=== PATIENT | female | born 2000 | race Caucasian/White ===

== ENCOUNTER 2025-02-05 21:05 | Inpatient (IN) | payer MEDICAID, OTHER ==
[~2025-02-05] VITALS: Ht 154.9 cm; Wt 102.0 kg
[2025-02-05 21:56] LABS: Basophils # (auto) 0 10 ^3/uL (0-0.2); Basophils % (auto) 0.1 % (0.0-2.0); Eosinophils # (auto) 0.1 10 ^3/uL (0-0.8); Eosinophils % (auto) 0.7 % (0.0-7.0); Hematocrit 41.7 % (36.0-46.0); Lymphocytes # (auto) 0.7 10 ^3/uL (0.4-5.4); Lymphocytes % (auto) 3.7 % (10.0-50.0); Mean Corpuscular Hgb Conc. 33.7 g/dL (32.0-36.0); Mean Corpuscular Volume 83.2 fL (80.0-100.0); Monocytes # (auto) 0.5 10 ^3/uL (0-1.3); Monocytes % (auto) 2.6 % (0.0-12.0); Neutrophils # (auto) 17.6 10 ^3/uL (1.6-8.6); Neutrophils % (auto) 92.9 % (37.0-80.0); Platelet Count (auto) 299 10^3/uL (140-450); Red Blood Cells 5.01 10^6/uL (4.0-5.20); Red Cell Distribution Width 13.9 % (11.8-14.3)
--- NOTE | 2025-02-05 22:07 | ED.PDOC ---
History of Present Illness HPI Comments 24 y/o obese F, with a history of marijuana use, presents with c/o abdominal pain, nausea, vomiting, and diarrhea. Patient reports onset of symptoms following the consumption of pork-containing food, earlier, today. Vomitus contains food content and 'yellow bile.' She endorses on history of similar symptoms whenever eating greasy or spicy food items. Patient admits to smoking marijuana, yesterday, and is unsure on being , currently. No recent prior ailments, sick contact, known spoiled food consumption, or injuries reported. She denies having any bloody vomitus or diarrhea, urinary symptoms, fever, chills, or further associated symptoms. Chief Complaint: Abdominal Pain Time Seen by MD: 21:30 Reviewed Notes: Nurses Notes, Medications, Allergies Allergies: Coded Allergies: NO KNOWN ALLERGIES (Unverified , 02/05/25) Home Meds Active Scripts Sulfamethoxazole W/Trimethopri (Bactrim Ds Tablet) 1 Tab Tb, 1 TAB PO BID for 7 Days, #14 TAB Prov:GABRIELA CHRISTIANSON MD 02/05/25 Loperamide Hcl (Imodium) 2 Mg Cp, 2 MG PO Q6HP PRN, #30 CAP Prov:GABRIELA CHRISTIANSON MD 02/05/25 Ondansetron HCl (Ondansetron Hydrochloride) 8 Mg Tab, 8 MG PO Q6HP PRN, #30 TAB Prov:GABRIELA CHRISTIANSON MD 02/05/25 Information Source: Patient Mode of Arrival: Ambulatory Severity: Moderate Timing: Hours Duration: Since onset Prehospital treatment: None Past Medical History PAST MEDICAL HISTORY: Denies Surgical History: Denies all surgeries LAPEL BASTER History: No Pertinent LAPEL BASTER History Social History Smoker: Non-Smoker Alcohol: Occasionally Drugs: Marijuana Lives In: Home All Other Systems: Reviewed and Negative (as per HPI) Physical Exam General Appearance: Mild Distress, Obese HEENT: Normal ENT Inspection, Pharynx Normal, TMs Normal Neck: Full Range of Motion, Non-Tender, Normal, Normal Inspection Respiratory: Chest Non-Tender, Lungs Clear, No Accessory Muscle Use, No Respiratory Distress, Normal Breath Sounds Cardiovascular: No Edema, No JVD, No Murmur, No Gallop, Normal Peripheral Pulses, Regular Rate/Rhythm Breast Exam: Deferred Gastrointestinal: No Organomegaly, Non Tender, No Pulsatile Mass, Normal Bowel Sounds, Soft Genitalia: Deferred Pelvic: Deferred Rectal: Deferred Extremities: No calf tenderness, Normal capillary refill, Normal inspection, Normal range of motion, Non-tender, No pedal edema Musculoskeletal : Apperance: Normal Neurologic: Alert, wax room supervisor II-XII nml as Tested, No Motor Deficits, Normal Affect, Normal Mood, No Sensory Deficits Cerebellar Function: Normal Reflexes: Normal Skin: Dry, Normal Color, Warm Lymphatic: No Adenopathy Was a procedure done? Was a procedure done?: No Differential Dx Considerations may include: gastritis, gastroenteritis, GERD, PUD, cholelithiasis, cholecystitis, spoiled food, viral syndrome, , UTI, cannabinoid hyperemesis syndrome, among others X-Ray, Labs, Meds, VS Vital Signs Date Time Temp Pulse Resp B/P (MAP) Pulse Ox O2 Delivery O2 Flow Rate FiO2 02/06/25 01:11 100.2 02/06/25 00:11 102.5 02/05/25 23:41 25 95 Room Air* 0 21 02/05/25 23:29 102.5 129 20 108/77 (87) 96 102.5 02/05/25 21:20 101.4 128 16 116/77 (90) 96 101.4 Lab Test 02/06/25 00:36 02/05/25 21:43 02/05/25 21:22 Range/Units Lactic Acid Level 1.8 0.4-2.0 mmol/L White Blood Count 19.0 H 4.4-10.8 10^3/uL Red Blood Count 5.01 4.0-5.20 10^6/uL Hemoglobin 14.0 12.2-16.2 g/dL Hematocrit 41.7 36.0-46.0 % Mean Corpuscular Volume 83.2 80.0-100.0 fL Mean Corpuscular Hemoglobin 28.0 28.0-32.0 pg Mean Corpuscular Hemoglobin Concent 33.7 32.0-36.0 g/dL Red Cell Distribution Width 13.9 11.8-14.3 % Platelet Count 299 140-450 10^3/uL Mean Platelet Volume 7.1 6.9-10.8 fL Neutrophils (%) (Auto) 92.9 H 37.0-80.0 % Lymphocytes (%) (Auto) 3.7 L 10.0-50.0 % Monocytes (%) (Auto) 2.6 0.0-12.0 % Eosinophils (%) (Auto) 0.7 0.0-7.0 % Basophils (%) (Auto) 0.1 0.0-2.0 % Neutrophils # (Auto) 17.6 H 1.6-8.6 10 ^3/uL Lymphocytes # (Auto) 0.7 0.4-5.4 10 ^3/uL Monocytes # (Auto) 0.5 0-1.3 10 ^3/uL Eosinophils # (Auto) 0.1 0-0.8 10 ^3/uL Basophils # (Auto) 0 0-0.2 10 ^3/uL Nucleated Red Blood Cells 0.0 % Sodium Level 140 136-145 mmol/L Potassium Level 3.8 3.5-5.1 mmol/L Chloride Level 108 H 98-107 mmol/L Carbon Dioxide Level 20 20-31 mmol/L Anion Gap 12 5-15 Blood Urea Nitrogen 9 9-23 mg/dL Creatinine 0.64 0.550-1.02 mg/dL Glomerular Filtration Rate Calc 127 >90 mL/min BUN/Creatinine Ratio 14.1 10.0-20.0 Serum Glucose 122 H 74-106 mg/dL Calcium Level 9.5 8.7-10.4 mg/dL Total Bilirubin 0.9 0.2-1.0 mg/dL Aspartate Amino Transferase (AST) 16 <34 U/L Alanine Aminotransferase (ALT) 19 7-40 U/L Alkaline Phosphatase 101 46-116 U/L Total Protein 7.7 5.7-8.2 g/dL Albumin 4.5 3.2-4.8 g/dL Urine Color Light-orange Yellow Urine Clarity Ex.turbid Clear Urine pH 5.5 5.0-9.0 Urine Specific [place] 1.029 1.001-1.035 Urine Protein Trace H Negative Urine Ketones Negative Negative Urine Blood 1+ H Negative /uL Urine Nitrite Negative Negative Urine Bilirubin Negative Negative Urine Urobilinogen Normal Negative mg/dL Urine Leukocyte Esterase 3+ Negative /uL Urine RBC 8 0 - 4 /hpf Urine Microscopic WBC 19 H 0-5 /HPF Urine Squamous Epithelial Cells Many <5 /hpf Urine Bacteria Few H None Seen /hpf Urine Mucus Few None Seen Urine Glucose Normal Normal mg/dL Urine Test Negative Negative Current Medications Medications (Trade) Dose Ordered Sig/Lisa Route Start Time Stop Time Status Last Admin Metoclopramide HCl (Reglan Injection) 10 mg ONCE ONCE IV 02/05/25 21:45 02/05/25 21:46 DC 02/05/25 23:54 Sodium Chloride 1,000 ml @ 1,000 mls/hr Q1H ONCE IVB 02/05/25 21:45 02/05/25 22:44 DC 02/05/25 23:51 Diphenhydramine HCl (Benadryl Injection) 25 mg ONCE ONCE IV 02/05/25 21:45 02/05/25 21:46 DC 02/05/25 23:54 Loperamide HCl (Imodium Capsule) 4 mg ONCE ONCE PO 02/05/25 21:45 02/05/25 21:46 DC 02/05/25 23:54 Ceftriaxone Sodium/Dextrose 50 ml @ 50 mls/hr ONCE ONCE IV 02/05/25 23:15 02/06/25 00:14 DC 02/06/25 00:39 Sodium Chloride 1,000 ml @ 1,000 mls/hr Q1H ONCE IV 02/06/25 00:15 02/06/25 01:14 DC 02/06/25 00:59 Acetaminophen (Tylenol Tablet) 1,000 mg ONCE ONCE PO 02/06/25 00:15 02/06/25 00:16 DC 02/06/25 00:11 Time of 1ST Reevaluation: 22:00 Reevaluation 1ST: Unchanged Patient Education/Counseling: Diagnosis, Treatment, Need For Follow Up Family Education/Counseling: No Family Present Sepsis Sepsis Reasesment Focused Exam Orders: Laboratory Tests 02/06/25 00:36: Lactic Acid Level 1.8 Departure 1 Departure Time of Disposition: 01:40 Impression: Primary Impression: Nausea vomiting and diarrhea Additional Impressions: UTI (urinary tract infection) Pyelonephritis Dehydration Disposition: 09 ADMITTED INPATIENT Admit to: Med Surg Condition: Guarded e-Prescriptions Sulfamethoxazole W/Trimethopri (Bactrim Ds Tablet) 1 Tab Tb 1 TAB PO BID for 7 Days, #14 TAB Prov: GABRIELA CHRISTIANSON MD 02/05/25 Loperamide Hcl (Imodium) 2 Mg Cp 2 MG PO Q6HP PRN, #30 CAP Prov: GABRIELA CHRISTIANSON MD 02/05/25 Ondansetron HCl (Ondansetron Hydrochloride) 8 Mg Tab 8 MG PO Q6HP PRN, #30 TAB Prov: GABRIELA CHRISTIANSON MD 02/05/25 Comments Abdominal Pain with Fever and UTI Chief Complaint: Nausea, vomiting, diarrhea, and diffuse abdominal pain for 2 days with fever History of Present Illness: 24-year-old female presents to the emergency department with a 2-day history of nausea, vomiting, diarrhea, and diffuse abdominal pain. Patient has been experiencing progressively worsening symptoms with development of fever. She reports multiple episodes of vomiting and loose stools over the past 48 hours. The abdominal pain is described as diffuse without specific localization. Patient presented with significant fever and tachycardia, suggesting systemic inflammatory response. No reported dysuria, frequency, or urgency mentioned, though urinalysis revealed evidence of urinary tract infection. Review of Systems: Constitutional: Positive for fever and fatigue. Gastrointestinal: Positive for nausea, vomiting, diarrhea, and diffuse abdominal pain. Genitourinary: No explicit complaints of dysuria, frequency, or urgency noted, though laboratory evidence of UTI present. Cardiovascular: Tachycardia noted. Respiratory: No cough, shortness of breath, or respiratory distress reported. Neurological: No altered mental status, headache, or dizziness reported. All other systems: Negative or not assessed in the provided information. Vital Signs: Temperature: Initially 101.4F, increased to 102.5F, improved to 100.2F after treatment Heart Rate: 128 bpm (tachycardic) Blood Pressure: Not documented Respiratory Rate: Not documented Oxygen Saturation: Not documented Lab Results: CBC: - WBC: 19,000/?L (elevated) Chemistry Panel: - Unremarkable - Glucose: 122 mg/dL - Lactic acid: 1.8 mmol/L Urinalysis: - 3+ leukocytes - Evidence of urinary tract infection Imaging and Other Relevant Results: CT Abdomen and Pelvis: - No acute intra-abdominal pathology - Left ovarian cyst noted - Incidental finding of cardiomegaly Medical Decision Making: Summary Statement: 24-year-old female presenting with 2-day history of nausea, vomiting, diarrhea, and abdominal pain, found to have fever, tachycardia, leukocytosis, and urinary tract infection with evidence of pyelonephritis. Problem List: 1. Acute pyelonephritis 2. Urinary tract infection 3. Nausea, vomiting, and diarrhea 4. Dehydration 5. Left ovarian cyst (incidental) 6. Cardiomegaly (incidental) Differential Diagnosis: Acute pyelonephritis, gastroenteritis, appendicitis, diverticulitis, ovarian pathology (torsion, rupture of cyst), inflammatory bowel disease, pancreatitis, cholecystitis. ED Course: Patient received IV fluid resuscitation for dehydration. Antipyretic (Tylenol) administered for fever. IV Rocephin (ceftriaxone) initiated for presumed pyelonephritis. Despite treatment, patient remained febrile at 100.2F, though improved from initial temperature. Decision made to admit for continued IV antibiotics and supportive care. Assessment and Plan: 1. Acute Pyelonephritis/Urinary Tract Infection: - Urinalysis positive for leukocytes consistent with UTI - Elevated WBC count (19,000) suggesting systemic infection - Continue IV Rocephin (ceftriaxone) - Monitor renal function - Consider urine culture results when available to guide antibiotic therapy - Monitor for clinical improvement 2. Nausea/Vomiting/Diarrhea with Dehydration: - Continue IV fluid resuscitation - Consider antiemetics as needed - Monitor electrolytes and renal function - Advance diet as tolerated once symptoms improve 3. Left Ovarian Cyst (Incidental): - Non-urgent gynecological follow-up after discharge 4. Cardiomegaly (Incidental): - Cardiology consultation during admission - Consider echocardiogram to evaluate cardiac function - Outpatient cardiology follow-up after discharge Disposition: Admit to medical floor for continued IV antibiotics, fluid resuscitation, and monitoring. Additional Notes: Patient admitted for pyelonephritis, UTI, and dehydration Billing Information: ICD-10: N10 - Acute pyelonephritis ICD-10: N39.0 - Urinary tract infection, site not specified ICD-10: E86.0 - Dehydration ICD-10: R11.2 - Nausea with vomiting ICD-10: R10.9 - Unspecified abdominal pain Critical Care Note Critical Care Time?: Yes (35 min-critical care time only) Critical care comment: Total critical care time: Approximately 36 minutes Due to a high probability of clinically significant, life threatening deterioration, the patient required my highest level of preparedness to int ervene emergently and I personally spent this critical care time directly and personally managing the patient. This critical care time included obtaining a history; examining the patient; pulse oximetry; ordering and review of studies; arranging urgent treatment with development of a management plan; evaluation of patient's response to treatment; frequent reassessment; and, discussions with other providers. This critical care time was performed to assess and manage the high probability of imminent, life-threatening deterioration that could result in multi-organ failure. It was exclusive of separately billable procedures and treating other patients. Stability Stability form required: No Heart Score Heart Score: Heart Score Response (Comments) Value History N/A 0 EKG N/A 0 Age N/A 0 Risk Factors N/A 0 Troponin N/A 0 Total 0 I personally scribed for GABRIELA CHRISTIANSON MD ([email or web address]) on 02/05/25 at 22:07. Saskia ctronically submitted by Arian Durham ([email or web address]). GABRIELA CHRISTIANSON MD Feb 05, 2025 22:07
[2025-02-05 22:10] LABS: Alanine Aminotransferase 19 U/L (7-40); Albumin 4.5 g/dL (3.2-4.8); Alkaline Phosphatase 101 U/L (46-116); Anion Gap 12 (5-15); Aspartate Aminotransferase 16 U/L (<34); BUN/Creatinine Ratio 14.1 (10.0-20.0); Blood Urea Nitrogen 9 mg/dL (9-23); Calcium 9.5 mg/dL (8.7-10.4); Potassium 3.8 mmol/L (3.5-5.1); Sodium 140 mmol/L (136-145); Total Protein 7.7 g/dL (5.7-8.2)
[2025-02-05 22:11] LABS: Bilirubin, Total 0.9 mg/dL (0.2-1.0)
[2025-02-05 22:18] LABS: Urine Bacteria FEW /hpf (None Seen); Urine Blood 1+ /uL (Negative); Urine Clarity Ex.Turbid (Clear); Urine Color Light-Orange (Yellow); Urine Mucus FEW (None Seen); Urine Protein, UAD TRACE (Negative); Urine Specific Gravity 1.029 (1.001-1.035); Urine Squamous Epithelial Cell MANY /hpf (<5); Urine Urobilinogen Normal (Negative); Urine WBC 19 /HPF (0-5); Urine pH 5.5 (5.0-9.0)
[2025-02-05 22:19] LABS: Carbon Dioxide 20 mmol/L (20-31); Chloride 108 mmol/L (98-107); Glucose 122 mg/dL (74-106)
[2025-02-05] MEDS ORDERED: LOPE2CAP16 PO (23:12)
[2025-02-05] MEDS ORDERED: ONDA-180 PO (23:12)
[2025-02-05] MEDS ORDERED: BACDST PO (23:12)
[2025-02-05 23:41] VITALS: RESP 25; O2SAT 95
[2025-02-05] MEDS: SODIUM CHLORIDE 0.9% 1,000 ML IVB ONE (23:51)
[2025-02-05] MEDS: diphenhdrAMINE HCL 50 MG/1 ML VL IV ONE (23:54)
[2025-02-05] MEDS: LOPERAMIDE HCL 2 MG CAP/TAB PO ONE (23:54)
[2025-02-05] MEDS: METOCLOPRAMIDE HCL 5MG/ml INJ 2ml VIAL IV ONE (23:54)
[2025-02-06] MEDS: ACETAMINOPHEN 325 MG TAB PO ONE (00:11)
[2025-02-06] MEDS: cefTRIAXone 2GM/50ML D5W 50 ML IV ONE (00:39)
[2025-02-06] MEDS: IOHEXOL 300 MG/ML 100ML BOTTLE IJ ONE (00:58)
[2025-02-06] MEDS: SODIUM CHLORIDE 0.9% 1,000 ML IV ONE ×2 (00:59→08:52)
--- NOTE | 2025-02-06 01:11 | DVH ---
Exam: CT CT AB PEL WITH IV CON ONLY History: abd pain COMPARISON: None Technique: Multidetector spiral CT of the abdomen and pelvis was performed from lung bases to pubic s ymphysis. Intravenous contrast was administered during this examination. Portal venous imaging was o btained. Axial, coronal and sagittal multiplanar reformats were performed by the technologist on a [id number] workstation. Radiation Dose : 1. Abdomen/Pelvis: CTDIvol 25.14 mGy, DLP 1445.95 mGy*cm. CONTRAST: Type of contrast: Omnipaque 300 Contrast injected: 100 ml Findings: Lung Bases: No acute or significant lung base finding. Cardiomegaly. No pleural or pericardial effus ion. Liver: The liver is normal in size. No focal lesions. Normal hepatic vascular enhancement. Gallbladder and Biliary Tree: Unremarkable Spleen: Unremarkable Pancreas: The pancreas is normal in appearance without focal lesions or abnormal enhancement. Adrenal Glands: Unremarkable Kidneys: No hydronephrosis. Bladder: Unremarkable Bowel: The stomach is grossly normal in appearance. Small bowel and colon are normal in caliber and d istribution. The appendix is normal. Ascites: Absent Lymphadenopathy: No mesenteric, retroperitoneal or periportal lymphadenopathy. Abdominal Wall and Mesentery: Unremarkable. Vasculature: The visualized abdominal aorta is normal in size and caliber. Abdominal and pelvic vess els demonstrate normal enhancement. Pelvic Organs: Left adnexal cystic structure near water attenuation measures 2.2 cm. Otherwise, unrem arkable. Musculoskeletal: No aggressive focal bony lesions, acute fractures or dislocation. IMPRESSION: 1. No acute abdominal or pelvic finding. 2. Cardiomegaly. 3. Probable left ovarian cyst. Radiation optimization: All CT scans at this facility use at least one of these dose optimization cheli hniques: automated exposure control mA and/or kV adjustment per patient size (includes targeted exam s where dose is matched to clinical indication) or iterative reconstruction.
[2025-02-06] MEDS ORDERED: NITROGLYCERIN 0.4 MG SL TAB SL PRN (02:30)
[2025-02-06] MEDS ORDERED: MORPHINE SULFATE INJ 2 MG/ml SYRG IV PRN ×2 (02:30)
[2025-02-06] MEDS ORDERED: ACETAMINOPHEN 325 MG TAB PO PRN (02:30)
[2025-02-06] MEDS: ENOXAPARIN SOD 40 MG/0.4 ML SYRINGE SC SCH (03:00)
--- NOTE | 2025-02-06 03:52 | DVHHPRES ---
History of Present Illness Resident Creating Document: BLESSING ESPINAL RESIDENT History of Present Illness Ms. Luu, a 24-year-old obese female with a history of marijuana use presents ambulatory to the ED with a two-day history of moderate diffuse abdominal pain, nausea, vomiting of food content and yellow bile, and diarrhea, which began after consuming pork-containing food earlier today. She reports a history of similar symptoms after eating greasy or spicy foods. She denies any recent illness, sick contacts, spoiled food consumption, injuries, urinary symptoms, fever, chills, bloody vomitus or diarrhea. She smoked marijuana yesterday and is unsure of her status. She has no significant past medical, surgical, or gynecological history. Differential diagnoses include gastroenteritis, UTI, pyelonephritis, and dehydration. Past Medical History None Past Surgical History None Family History: None, Other (noncontributory ) Smoke: No ALCOHOL: occassional Drugs: Marijuana Lives: with Family Domestic Violence: Neg Review of Systems Constitutional: No: Fever, Chills, Sweats, Weakness, Malaise, Other Eyes: No: Pain, Vision change, Conjunctivae inflammation, Eyelid inflammation, Other, Redness ENT: No: Ear pain, Ear discharge, Nose pain, Nose discharge, Nose congestion, Mouth pain, Mouth swelling, Throat pain, Throat swelling, Other Respiratory: No: Cough, Dry, Shortness of breath, SOB with excertion, Wheezing, Hemoptysis, Pleuritic Pain, Sputum, Wheezing, Other Cardiovascular: No: Chest Pain, Palpitations, Orthopnea, Paroxysmal Noc. Dyspnea, Edema, Lt Headedness, Other Gastrointestinal: Nausea, Vomiting, Abdominal Pain, Diarrhea; No: Constipation, Melena, Hematochezia, Other Genitourinary: No Dysuria, No Frequency, No Incontinence, No Hematuria, No Retention, No Other Musculoskeletal: No: other, neck pain, shoulder pain, arm pain, back pain, hand pain, leg pain, foot pain Neurological: No: Weakness, Numbness, Incoordination, Change in speech, Confusion, Seizures, Other Allergies: Coded Allergies: NO KNOWN ALLERGIES (Unverified , 02/05/25) Medications Current Medications Medications Dose Ordered Sig/Lisa Route Start Time Stop Time Status Last Admin Dose Admin Acetaminophen 650 mg Q6HP PRN PO 02/06/25 02:30 Morphine Sulfate 2 mg Q4HPRN PRN IV 02/06/25 02:30 Enoxaparin Sodium 40 mg DAILY SC 02/06/25 02:30 Nitroglycerin 0.4 mg Q5MINP PRN SL 02/06/25 02:30 Morphine Sulfate 2 mg Q30M PRN IV 02/06/25 02:30 Exam Vital Signs Vital Signs Date Time Temp Pulse Resp B/P (MAP) Pulse Ox O2 Delivery O2 Flow Rate FiO2 02/06/25 01:11 100.2 02/05/25 23:41 25 95 Room Air* 0 21 02/05/25 23:29 129 108/77 (87) General Appearance: Alert, Oriented X3, Cooperative, No acute distress, moderate distress HEENT: Atraumatic, PERRLA, EOMI, Other (dry mucosa) Respiratory: Clear to auscultation, Normal air movement, Other (RA) Cardiovascular: Regular rate, Normal S1, Normal S2, No murmurs Abdominal: Normal bowel sounds, Soft, No tenderness, No hepatospenomegaly, No masses, Other (BS hyperdynamic) Extremities: No clubbing, No cyanosis, No edema, Normal pulses, No tenderness/swelling Skin: No breakdown, No significant lesion Neuro: Normal gait, Normal speech, Strength at 5/5 X4 ext, Normal tone, Sensation intact, Cranial nerves 3-12 NL, Reflexes 2+ Psych/Mental Status: Mental status NL, Mood NL Labs/Xrays Labs Test 02/06/25 00:36 02/05/25 21:43 02/05/25 21:22 Range/Units Lactic Acid Level 1.8 0.4-2.0 mmol/L White Blood Count 19.0 H 4.4-10.8 10^3/uL Red Blood Count 5.01 4.0-5.20 10^6/uL Hemoglobin 14.0 12.2-16.2 g/dL Hematocrit 41.7 36.0-46.0 % Mean Corpuscular Volume 83.2 80.0-100.0 fL Mean Corpuscular Hemoglobin 28.0 28.0-32.0 pg Mean Corpuscular Hemoglobin Concent 33.7 32.0-36.0 g/dL Red Cell Distribution Width 13.9 11.8-14.3 % Platelet Count 299 140-450 10^3/uL Mean Platelet Volume 7.1 6.9-10.8 fL Neutrophils (%) (Auto) 92.9 H 37.0-80.0 % Lymphocytes (%) (Auto) 3.7 L 10.0-50.0 % Monocytes (%) (Auto) 2.6 0.0-12.0 % Eosinophils (%) (Auto) 0.7 0.0-7.0 % Basophils (%) (Auto) 0.1 0.0-2.0 % Neutrophils # (Auto) 17.6 H 1.6-8.6 10 ^3/uL Lymphocytes # (Auto) 0.7 0.4-5.4 10 ^3/uL Monocytes # (Auto) 0.5 0-1.3 10 ^3/uL Eosinophils # (Auto) 0.1 0-0.8 10 ^3/uL Basophils # (Auto) 0 0-0.2 10 ^3/uL Nucleated Red Blood Cells 0.0 % Sodium Level 140 136-145 mmol/L Potassium Level 3.8 3.5-5.1 mmol/L Chloride Level 108 H 98-107 mmol/L Carbon Dioxide Level 20 20-31 mmol/L Anion Gap 12 5-15 Blood Urea Nitrogen 9 9-23 mg/dL Creatinine 0.64 0.550-1.02 mg/dL Glomerular Filtration Rate Calc 127 >90 mL/min BUN/Creatinine Ratio 14.1 10.0-20.0 Serum Glucose 122 H 74-106 mg/dL Calcium Level 9.5 8.7-10.4 mg/dL Total Bilirubin 0.9 0.2-1.0 mg/dL Aspartate Amino Transferase (AST) 16 <34 U/L Alanine Aminotransferase (ALT) 19 7-40 U/L Alkaline Phosphatase 101 46-116 U/L Total Protein 7.7 5.7-8.2 g/dL Albumin 4.5 3.2-4.8 g/dL Thyroid Stimulating Hormone (TSH) 0.35 L 0.55-4.78 uIU/mL Beta HCG, Quantitative 0.7 L 1.5-4.2 mIU/mL Urine Color Light-orange Yellow Urine Clarity Ex.turbid Clear Urine pH 5.5 5.0-9.0 Urine Specific [place] Gap 1.029 1.001-1.035 Urine Protein Trace H Negative Urine Ketones Negative Negative Urine Blood 1+ H Negative /uL Urine Nitrite Negative Negative Urine Bilirubin Negative Negative Urine Urobilinogen Normal Negative mg/dL Urine Leukocyte Esterase 3+ Negative /uL Urine RBC 8 0 - 4 /hpf Urine Microscopic WBC 19 H 0-5 /HPF Urine Squamous Epithelial Cells Many <5 /hpf Urine Bacteria Few H None Seen /hpf Urine Mucus Few None Seen Urine Glucose Normal Normal mg/dL Urine Test Negative Negative Assessment/Plan Assessment/Plan #Acute abdominal pain Associated with diarrhea: CT Abdomen and Pelvis: No acute intra-abdominal pathology Noted, ruled out. CMP, lipase, UDS, #Possible gastroenteritis: Viral versus Gram-negative, parasitic, stool workup pending, IV pantoprazole, ondansetron, IV hydration to continue. #Possible cyclic vomiting syndrome, IV hydration marijuana avoidance, workup in progress. #Chronic marijuana abuse, likely associated with abdominal symptoms. #Left ovarian cyst, noted in noncontrast abdominal CT Non-urgent gynecological follow-up after discharge #Incidental finding of cardiomegaly: Consider echocardiogram to evaluate cardiac function, Outpatient cardiology follow-up after discharge. Monitor vitals inpatient. #Acute Pyelonephritis/Urinary Tract Infection: Check renal ultrasound to look for any obstruction. IV Rocephin to continue, urine and blood culture pending. #Sepsis secondary due to UTI: Lactate negative, for fever as needed Tylenol+ cooling blanket, sepsis dose IV fluid, IV antibiotics to continue IV hydration with close input output to continue. #grade 3 obesity with BMI of 40.9, weight loss might be beneficial, check for TSH, lipid panel and HbA1c PCP: Dr. Ziegler. Specialist Relevent To Admission: OBGYN, Cardiology, NO need of inpatient consult. Case discussed with Dr. Torres. Code Status: Full Code. Discussion needed total 33 minutes bedside including goals of care discussion and care plan. Patient is admitted in hospital for further workup and management. Agreeable to the plan. Plan discussed with: Patient My Orders Orders - BLESSING ESPINAL RESIDENT Procedure Category Date Status Time Admit ADMIT 02/06/25 Transmitted 02:25 Allergies JOSÉ LUIS 02/06/25 In Process 02:25 Code Status CODE 02/06/25 Transmitted 02:25 Complete Blood Count LAB 02/07/25 Verified 04:00 Comprehensive LAB 02/07/25 Verified Metabolic Panel 04:00 Condition: Serious JOSÉ LUIS 02/06/25 In Process 02:25 Acetaminophen Tablet PHA 02/06/25 In Process (Tylenol Tablet) 02:30 Clear Liq Diet DIET 02/06/25 Transmitted Breakfast Morphine Sulfate PHA 02/06/25 In Process Injection 02:30 Enoxaparin Sodium PHA 02/06/25 In Process (Lovenox) 02:30 Nitroglycerin PHA 02/06/25 In Process Sublingual (Ntrostat 02:30 Morphine Sulfate PHA 02/06/25 In Process Injection 02:30 Oxygen By Nasal RT 02/06/25 Transmitted Cannula 02:25 Stat Ekg For Chest JOSÉ LUIS 02/06/25 In Process Pain 02:25 Notify Of Changes JOSÉ LUIS 02/06/25 In Process From Base 02:25 Double Bass Player For JOSÉ LUIS 02/06/25 In Process 24 Hours 02:25 Emergency Dysrhythmia JOSÉ LUIS 02/06/25 In Process Protocol 02:25 Rhythm Strips Once JOSÉ LUIS 02/06/25 In Process Every Shift 02:25 Kidney US 02/06/25 Logged 02:25 Urine Bacterial BRUCE 02/06/25 In Process Culture 02:30 Free T3 LAB 02/06/25 In Process 03:14 Free T4 (Free LAB 02/06/25 In Process Thyroxine) 03:14 Echo 2d Mode Cardiac US 02/06/25 Logged DOP 03:15 Drug Screen LAB 02/06/25 Logged 03:24 Blood Alcohol LAB 02/06/25 Logged 03:24 Lipase LAB 02/06/25 Logged 03:24 Clostridium Difficile BRUCE 02/06/25 Uncollected Toxin 03:25 Ova & Parasite Exam BRUCE 02/06/25 Transmitted 03:25 Stool Bacterial BRUCE 02/06/25 Transmitted Culture 03:25 Stool Occult Blood LAB 02/06/25 Transmitted 03:25 Gram Stain BRUCE 02/06/25 Transmitted 03:25 Stool Wbc LAB 02/06/25 Transmitted 03:25 Lipid Panel LAB 02/06/25 Transmitted 03:25 Hemoglobin A1c LAB 02/06/25 Transmitted 03:25 Date of Service: Feb 06, 2025 Billing Provider: ALEXANDRA TORRES MD Common Visit Codes: [id number] INP/OBS CARE (HIGH) Secondary Visit Codes: [id number] CARE PLAN 30 MINUTES BLESSING ESPINAL RESIDENT Feb 06, 2025 03:52
[2025-02-06 04:28] LABS: LDL Cholesterol 85 mg/dL (< 100)
[2025-02-06 04:29] LABS: Cholesterol 138 mg/dL (< 200)
[2025-02-06 04:46] LABS: Blood Alcohol < 3.0 mg/dL (<10)
[2025-02-06 04:59] LABS: HDL Cholesterol 42 mg/dL (40-59)
[2025-02-06 05:00] LABS: Triglycerides 83 mg/dL (< 150)
[2025-02-06 05:24] LABS: Lipase 29 U/L (12-53)
--- NOTE | 2025-02-06 07:12 | DVH ---
EXAM: US Retroperitoneal Limited, Renal CLINICAL INDICATION: Pain TECHNIQUE: Real-time limited ultrasound of the retroperitoneum with image documentation. COMPARISON: No relevant prior studies available. FINDINGS: RIGHT KIDNEY: Apparent solid hypoechoic lesion in the right renal sinus measuring 2.7 x 2.1 x 1.9 cm . This can be further evaluated with MRI with and without contrast using renal mass protocol. Right kidney measures up to 12.8 cm. No stones. No hydronephrosis. LEFT KIDNEY: Left kidney measuring up to 10.3 cm. No stones. No hydronephrosis. IMPRESSION: Apparent solid hypoechoic lesion in the right renal sinus measuring 2.7 x 2.1 x 1.9 cm. This can be further evaluated with MRI with and without contrast using renal mass protocol.
[2025-02-06 09:20] LABS: Basophils # (auto) 0 10 ^3/uL (0-0.2); Basophils % (auto) 0.1 % (0.0-2.0); Eosinophils # (auto) 0.2 10 ^3/uL (0-0.8); Eosinophils % (auto) 1.5 % (0.0-7.0); Hematocrit 41.3 % (36.0-46.0); Hemoglobin 13.8 g/dL (12.2-16.2); Lymphocytes # (auto) 1.3 10 ^3/uL (0.4-5.4); Lymphocytes % (auto) 10.1 % (10.0-50.0); Mean Corpuscular Hgb Conc. 33.4 g/dL (32.0-36.0); Monocytes # (auto) 0.5 10 ^3/uL (0-1.3); Monocytes % (auto) 4.1 % (0.0-12.0); Neutrophils # (auto) 10.7 10 ^3/uL (1.6-8.6); Neutrophils % (auto) 84.2 % (37.0-80.0); Nucleated Red Blood Cells % 0.1 %; Platelet Count (auto) 275 10^3/uL (140-450); Red Blood Cells 4.92 10^6/uL (4.0-5.20); Red Cell Distribution Width 14.1 % (11.8-14.3); White Blood Cell 12.7 10^3/uL (4.4-10.8)
[2025-02-06 09:27] LABS: Sodium 139 mmol/L (136-145)
[2025-02-06 09:28] LABS: Anion Gap 12 (5-15); Calcium 8.9 mg/dL (8.7-10.4)
[2025-02-06 09:31] LABS: Carbon Dioxide 19 mmol/L (20-31); Chloride 108 mmol/L (98-107); Potassium 3.2 mmol/L (3.5-5.1)
[2025-02-06 09:33] LABS: BUN/Creatinine Ratio 12.3 (10.0-20.0); Glucose 104 mg/dL (74-106)
[2025-02-06 09:46] LABS: Blood Urea Nitrogen 7 mg/dL (9-23)
[2025-02-06] MEDS: POTASSIUM CHL 20MEQ/100ML 100 ML IV SCH (10:57)
--- NOTE | 2025-02-06 12:19 | DVH ---
MRI Abdomen, without IV Contrast Exam Date: 02/06/2025 11:19 AM Comparison: Renal ultrasound 02/06/2025 History: RENAL CYST Technique: Multisequence multiplanar MRI images were obtained of the abomen. Findings: Liver: The liver is normal in size without focal lesions. Normal liver contour. Spleen: Unremarkable. Pancreas: The pancreas is normal in appearance without focal lesions. Gallbladder and ducts: Gallbladder is normal in appearance. The cystic duct, right and left hepatic ducts, common hepatic duct, and common bile ducts are unremarkable. The pancreatic duct is within n ormal limits. Adrenal glands: Unremarkable. Kidneys: There is soft tissue prominence in the right renal pelvis, likely a prominent column of Cheo in. Visualized bowel: Grossly unremarkable. Vasculature: Unremarkable. Lymphadenopathy: No evidence for lymphadenopathy. Ascites: Absent. Musculoskeletal: Bone marrow signal is normal. IMPRESSION: 1. No renal cyst. Prominent soft tissue density in the right renal pelvis likely represents a promin ent column of Sheldon although evaluation is limited without contrast. Consider follow-up exam with in travenous contrast. HS:Олег
[2025-02-06 12:46] LABS: Free T3 2.52 pg/mL (2.3-4.2); Free T4 (Free Thyroxine) 1.07 ng/dL (0.89-1.76)
--- NOTE | 2025-02-06 15:04 | DVHPNRES ---
Progress Note Date Seen: Feb 06, 2025 Resident Creating Document: STACY VOGT RESIDENT Has the PT tested + for MRSA If YES, has PT been informed?: No Medical Necessity Reason Pt with a Central, PICC or Fol: No Subjective Review of Systems Ms. Luu, a 24-year-old obese female with a history of marijuana use presents ambulatory to the ED with a two-day history of moderate diffuse abdominal pain, nausea, vomiting of food content and yellow bile, and diarrhea, which began after consuming pork-containing food earlier today. She reports a history of similar symptoms after eating greasy or spicy foods. She denies any recent illness, sick contacts, spoiled food consumption, injuries, urinary symptoms, fever, chills, bloody vomitus or diarrhea. She smoked marijuana yesterday and is unsure of her status. She has no significant past medical, surgical, or gynecological history. Differential diagnoses include gastroenteritis, UTI, pyelonephritis, and dehydration. Past Medical History None Past Surgical History None Family History: None, Other (noncontributory ) Smoke: No ALCOHOL: occassional Drugs: Marijuana Lives: with Family Domestic Violence: Neg 02/06/2025: solid hypoechoic lesion in the right renal sinus measuring 2.7 x 2.1 x 1.9 cm. MRI showed: Prominent soft tissue density in the right renal pelvis likely represents a prominent column of Sheldon, sepsis due to possible gastroenteritis and UTI, IV AB ceftraixone and metronidazole, fluids given Objective vital signs Vital Sign Date Time Temp Pulse Resp B/P (MAP) Pulse Ox O2 Delivery O2 Flow Rate FiO2 02/06/25 13:51 99.1 96 16 114/71 (85) 100 99.1 02/06/25 08:54 Room Air* 0 21 medications Current Medications Medications Dose Ordered Sig/Lisa Route Start Time Stop Time Status Last Admin Dose Admin Acetaminophen 650 mg Q6HP PRN PO 02/06/25 02:30 Enoxaparin Sodium 40 mg DAILY SC 02/06/25 02:30 Ceftriaxone Sodium 50 ml @ 100 mls/hr DAILY@09 IV 02/07/25 09:00 Metronidazole 100 ml @ 100 mls/hr Q8HR IV 02/06/25 14:00 Examination General Appearance: Alert, Oriented X3, Cooperative, No acute distress, moderate distress HEENT: Atraumatic, PERRLA, EOMI, Other (dry mucosa) Respiratory: Clear to auscultation, Normal air movement, Other (RA) Cardiovascular: Regular rate, Normal S1, Normal S2, No murmurs Abdominal: Normal bowel sounds, Soft, No tenderness, No hepatospenomegaly, No masses, Other (BS hyperdynamic) Extremities: No clubbing, No cyanosis, No edema, Normal pulses, No tenderness/swelling Skin: No breakdown, No significant lesion Neuro: Normal gait, Normal speech, Strength at 5/5 X4 ext, Normal tone, Sensation intact, Cranial nerves 3-12 NL, Reflexes 2+ Psych/Mental Status: Mental status NL, Mood N laboratory and microbiology Laboratory Tests 02/06/25 09:10 Test 02/06/25 09:10 Range/Units Serum Glucose 104 74-106 mg/dL Microbiology Date/Time Source Procedure Growth Status 02/06/25 08:34 Stool Received Problem List/Assessment/Plan Problem List/Assessment/Plan #Acute intractable abdominal pain #Sepsis secondary due to UTI #Possible gastroenteritis: #Possible cyclic vomiting syndrome? #Chronic marijuana abuse, likely associated with abdominal symptoms. #Left ovarian cyst, #Acute Pyelonephritis/Urinary Tract Infection #grade 3 obesity with BMI of 40.9 #Hypokalemia Clear liquid diet IV fluids given Ceftriaxone + Metronidazole Lovenox 40 mg SC Case dicussed with Dr Osborne Plan discussed with: Patient, Other (rn) My Orders My Orders Orders - STACY VOGT Procedure Category Date Status Time Ceftriaxone 1gm/50ml PHA 02/07/25 In Process D5w (Rocephin) 09:00 Metronidazole PHA 02/06/25 In Process 500mg/100ml (Flagyl 14:00 Mri Abdomen No MRI 02/06/25 Resulted Contrast 10:38 Date of Service: Feb 06, 2025 Billing Provider: BRIAN OSBORNE MD Common Visit Codes: [id number] INP/OBS CARE(HIGH) STACY VOGT Feb 06, 2025 15:04 BRIAN OSBORNE MD Feb 07, 2025 21:26
[2025-02-06] MEDS: metroNIDAZOLE 500MG/100ML 100 ML IV SCH (16:15)
[2025-02-06] MEDS: cefTRIAXone 1GM/50ML D5W 50 ML IV SCH (19:47)
[2025-02-06 21:40] VITALS: PULSE 89; RESP 18
[2025-02-06 21:50] VITALS: BP 122/85; PULSE 89; RESP 18; TEMP 99.6; O2SAT 100
[2025-02-07 00:57] VITALS: BP 115/69; PULSE 99; RESP 18; TEMP 98; O2SAT 98
[2025-02-07 05:08] VITALS: BP 114/66; PULSE 104; RESP 18; TEMP 99; O2SAT 95
[2025-02-07 06:25] LABS: Alanine Aminotransferase 14 U/L (7-40); Alkaline Phosphatase 74 U/L (46-116); Calcium 8.8 mg/dL (8.7-10.4)
[2025-02-07 06:26] LABS: Albumin 3.7 g/dL (3.2-4.8); Anion Gap 11 (5-15); Aspartate Aminotransferase 14 U/L (<34); Bilirubin, Total 0.5 mg/dL (0.2-1.0); Blood Urea Nitrogen < 5 mg/dL (9-23); Carbon Dioxide 22 mmol/L (20-31); Chloride 111 mmol/L (98-107); Glucose 85 mg/dL (74-106); Potassium 3.3 mmol/L (3.5-5.1); Sodium 144 mmol/L (136-145); Total Protein 6.3 g/dL (5.7-8.2)
[2025-02-07 06:27] LABS: Basophils # (auto) 0 10 ^3/uL (0-0.2); Basophils % (auto) 0.2 % (0.0-2.0); Eosinophils # (auto) 0.2 10 ^3/uL (0-0.8); Eosinophils % (auto) 2.3 % (0.0-7.0); Hematocrit 35.9 % (36.0-46.0); Hemoglobin 12.2 g/dL (12.2-16.2); Lymphocytes # (auto) 2.1 10 ^3/uL (0.4-5.4); Lymphocytes % (auto) 21.1 % (10.0-50.0); Mean Corpuscular Hemoglobin 28.1 pg (28.0-32.0); Mean Corpuscular Volume 82.7 fL (80.0-100.0); Monocytes # (auto) 0.6 10 ^3/uL (0-1.3); Monocytes % (auto) 5.7 % (0.0-12.0); Neutrophils % (auto) 70.7 % (37.0-80.0); Nucleated Red Blood Cells % 0.2 %; Platelet Count (auto) 257 10^3/uL (140-450); Red Blood Cells 4.34 10^6/uL (4.0-5.20); Red Cell Distribution Width 13.9 % (11.8-14.3); White Blood Cell 9.9 10^3/uL (4.4-10.8)
[2025-02-07 06:40] LABS: BUN/Creatinine Ratio 10.2 (10.0-20.0)
[2025-02-07 07:40] VITALS: RESP 16
[2025-02-07 09:00] VITALS: BP 117/71; PULSE 100; RESP 18; TEMP 98.6; O2SAT 97
[2025-02-07] MEDS ORDERED: cefTRIAXone 1GM/50ML D5W 50 ML IV SCH (09:00)
[2025-02-07] MEDS: POTASSIUM CHL 20 Meq TABLET PO ONE (09:01)
[2025-02-07] MEDS ORDERED: ACET-1079 PO (10:05)
[2025-02-07] MEDS ORDERED: METR-344 PO (10:05)
[2025-02-07] MEDS ORDERED: CIPR-214 PO (10:05)
--- NOTE | 2025-02-07 10:45 | DVHDSRES ---
Discharge Summary Date of Admission Resident Creating Document: STACY VOGT RESIDENT Feb 06, 2025 at 02:25 Date of Discharge: Feb 07, 2025 Admitting Diagnosis Sepsis secondary due to UTI Labs/Diagnostic Data: Laboratory Results Test 02/07/25 05:32 02/06/25 09:10 02/06/25 08:34 02/06/25 03:46 White Blood Count 9.9 10^3/uL (4.4-10.8) Red Blood Count 4.34 10^6/uL (4.0-5.20) Hemoglobin 12.2 g/dL (12.2-16.2) Hematocrit 35.9 % (36.0-46.0) Mean Corpuscular Volume 82.7 fL (80.0-100.0) Mean Corpuscular Hemoglobin 28.1 pg (28.0-32.0) Mean Corpuscular Hemoglobin Concent 34.0 g/dL (32.0-36.0) Red Cell Distribution Width 13.9 % (11.8-14.3) Platelet Count 257 10^3/uL (140-450) Mean Platelet Volume 7.2 fL (6.9-10.8) Neutrophils (%) (Auto) 70.7 % (37.0-80.0) Lymphocytes (%) (Auto) 21.1 % (10.0-50.0) Monocytes (%) (Auto) 5.7 % (0.0-12.0) Eosinophils (%) (Auto) 2.3 % (0.0-7.0) Basophils (%) (Auto) 0.2 % (0.0-2.0) Neutrophils # (Auto) 7.0 10 ^3/uL (1.6-8.6) Lymphocytes # (Auto) 2.1 10 ^3/uL (0.4-5.4) Monocytes # (Auto) 0.6 10 ^3/uL (0-1.3) Eosinophils # (Auto) 0.2 10 ^3/uL (0-0.8) Basophils # (Auto) 0 10 ^3/uL (0-0.2) Nucleated Red Blood Cells 0.2 % Sodium Level 144 mmol/L (136-145) Potassium Level 3.3 mmol/L (3.5-5.1) Chloride Level 111 mmol/L (98-107) Carbon Dioxide Level 22 mmol/L (20-31) Anion Gap 11 (5-15) Blood Urea Nitrogen < 5 mg/dL (9-23) Creatinine 0.49 mg/dL (0.550-1.02) Glomerular Filtration Rate Calc 136 mL/min (>90) BUN/Creatinine Ratio 10.2 (10.0-20.0) Serum Glucose 85 mg/dL (74-106) Calcium Level 8.8 mg/dL (8.7-10.4) Magnesium Level 1.9 mg/dL (1.6-2.6) Total Bilirubin 0.5 mg/dL (0.2-1.0) Aspartate Amino Transferase (AST) 14 U/L (<34) Alanine Aminotransferase (ALT) 14 U/L (7-40) Alkaline Phosphatase 74 U/L (46-116) Total Protein 6.3 g/dL (5.7-8.2) Albumin 3.7 g/dL (3.2-4.8) Free Thyroxine (T4) Calculated 1.07 ng/dL (0.89-1.76) Free Triiodothyronine (T3) pg/mL 2.52 pg/mL (2.3-4.2) Stool Occult Blood Positive (Negative) Stool Occult Blood Sample #3 (Negative) Stool for White Cells Few Triglycerides Level 83 mg/dL (< 150) Cholesterol Level 138 mg/dL (< 200) LDL Cholesterol 85 mg/dL (< 100) HDL Cholesterol 42 mg/dL (40-59) Lipase 29 U/L (12-53) Plasma/Serum Blood Alcohol < 3.0 mg/dL (<10) Test 02/06/25 00:36 02/05/25 21:43 02/05/25 21:22 Lactic Acid Level 1.8 mmol/L (0.4-2.0) Hemoglobin A1c 5.8 % A1C (<5.7) Thyroid Stimulating Hormone (TSH) 0.35 uIU/mL (0.55-4.78) Beta HCG, Quantitative 0.7 mIU/mL (1.5-4.2) Urine Color Light-orange (Yellow) Urine Clarity Ex.turbid (Clear) Urine pH 5.5 (5.0-9.0) Urine Specific [place] 1.029 (1.001-1.035) Urine Protein Trace (Negative) Urine Ketones Negative (Negative) Urine Blood 1+ /uL (Negative) Urine Nitrite Negative (Negative) Urine Bilirubin Negative (Negative) Urine Urobilinogen Normal mg/dL (Negative) Urine Leukocyte Esterase 3+ /uL (Negative) Urine RBC 8 /hpf (0 - 4) Urine Microscopic WBC 19 /HPF (0-5) Urine Squamous Epithelial Cells Many /hpf (<5) Urine Bacteria Few /hpf (None Seen) Urine Mucus Few (None Seen) Urine Glucose Normal mg/dL (Normal) Urine Test Negative (Negative) Other Laboratory Tests 02/07/25 05:32 Brief Hx & Hospital Course: 24-year-old obese female with PMH notable for chronic marijuana use presented to the ED with 2 days of diffuse abdominal pain, nausea, vomiting of food content and bile, and diarrhea after consuming pork-based food. She reported occasional alcohol use, daily marijuana use, and uncertain status. CT and MRI imaging revealed a solid hypoechoic lesion in the right renal sinus with prominent soft tissue densitylikely a prominent column of Sheldon. Vitals on admission were stable. Labs consistent with sepsis, hypokalemia, and UTI. Treated empirically for gastroenteritis and pyelonephritis with IV ceftriaxone and metronidazole, along with IV fluids and supportive care. Patient improved clinically and was deemed stable for discharge. Medications on Discharge: Acetaminophen 325 mg PO TID x10 days Ciprofloxacin 500 mg PO BID x10 days Metronidazole 500 mg PO TID x10 days Disposition: Home / Self-care Follow-up: Follow up with PCP within 12 weeks. Return to ED if symptoms worsen or new symptoms develop. Condition on Discharge: Stable, afebrile, tolerating PO, pain improved. Case discussed with Dr Lindquist Operations or Procedures MRI Abdomen, without IV Contrast Exam Date: 02/06/2025 11:19 AM Comparison: Renal ultrasound 02/06/2025 History: RENAL CYST Technique: Multisequence multiplanar MRI images were obtained of the abomen. Findings: Liver: The liver is normal in size without focal lesions. Normal liver contour. Spleen: Unremarkable. Pancreas: The pancreas is normal in appearance without focal lesions. Gallbladder and ducts: Gallbladder is normal in appearance. The cystic duct, right and left hepatic ducts, common hepatic duct, and common bile ducts are unremarkable. The pancreatic duct is within normal limits. Adrenal glands: Unremarkable. Kidneys: There is soft tissue prominence in the right renal pelvis, likely a prominent column of Sheldon. Visualized bowel: Grossly unremarkable. Vasculature: Unremarkable. Lymphadenopathy: No evidence for lymphadenopathy. Ascites: Absent. Musculoskeletal: Bone marrow signal is normal. IMPRESSION: 1. No renal cyst. Prominent soft tissue density in the right renal pelvis likely represents a prominent column of Sheldon although evaluation is limited without contrast. Consider follow-up exam with intravenous contrast. EXAM: US Retroperitoneal Limited, Renal CLINICAL INDICATION: Pain TECHNIQUE: Real-time limited ultrasound of the retroperitoneum with image documentation. COMPARISON: No relevant prior studies available. FINDINGS: RIGHT KIDNEY: Apparent solid hypoechoic lesion in the right renal sinus measuring 2.7 x 2.1 x 1.9 cm. This can be further evaluated with MRI with and without contrast using renal mass protocol. Right kidney measures up to 12.8 cm. No stones. No hydronephrosis. LEFT KIDNEY: Left kidney measuring up to 10.3 cm. No stones. No hydronephrosis. IMPRESSION: Apparent solid hypoechoic lesion in the right renal sinus measuring 2.7 x 2.1 x 1.9 cm. This can be further evaluated with MRI with and without contrast using renal mass protocol. Condition at Discharge: Stable Final Diagnosis/Problems List #Acute intractable abdominal pain #Sepsis secondary due to UTI #Possible gastroenteritis: #Possible cyclic vomiting syndrome? #Chronic marijuana abuse, likely associated with abdominal symptoms. #Left ovarian cyst, #Acute Pyelonephritis/Urinary Tract Infection #grade 3 obesity with BMI of 40.9 #Hypokalemia Discharge Disposition: Home Discharge Instruct/Medications Diet: See Comment Diet comment: clear liquid diet, please advance slowly Activity: Light activity Follow Up/Referral: [facility] for possible [facility] referal Medications: see prescription Discharge Statement: "Patient was advised to return to the ER or call 911 if any headaches, dizziness, shortness of breath, chest pain, abdominal pain, bleeding, fevers, or worsening of medical condition. Patient was counseled about treatment plan, medications, possible side effects, patientverbalized understanding. All questions were answered to the best of my ability. This discharge took greater then 30 minutes in planning, reviewing documentation, counseling the patient, and discussing with other team members." ASSESSMENT ASSESSMENT Assessment acute gastroenteritis STACY VOGT RESIDENT Feb 07, 2025 10:45
[2025-02-07 11:05] VITALS: BP 117/71; PULSE 100; RESP 18; TEMP 98.6; O2SAT 97
--- NOTE | 2025-02-07 12:15 | DVHSR ---
APPROVED REPORT EXAM: Two-dimensional and M-mode echocardiogram with Doppler and color Doppler. Blood Pressure: 121/70 mmHg INDICATION Rule out structural heat disease RISK FACTORS Obesity: Height: 5'1", Weight: 216 DIMENSIONS LVDd4.4 (3.8-5.7cm)LA (2D)3.6 (1.9-4.0cm)Aortic Root2.9 (2.0-3.7cm) LVDs3.1 (2.5-4.0cm)LA (MM) (1.9-4.0cm)Aortic Cusp Exc2.1 (1.5-2.0cm) EF (%) 60.0 (55-70%)Rt. Atrium3.8 (1.9-4.0cm)Asc. Aorta cm IVSd0.9 (0.7-1.1cm)RV (D) (1.8-2.4cm) PWd1.0 (0.7-1.1cm) Mitral Valve MitralMitral Stenosis E wave1.11m/sMV Mean GR.mmHg A wave0.80m/sMV Peak GR.mmHg E/A ratio1.42D MVAcm2 DECEL [id number] 1/2 [place] Aortic Valve Aortic ValveAortic Stenosis V11.01m/Anish Mean GR.5mmHg V21.67m/Anish Peak GR.11mmHg LVOT Diameter2.1 (1.8-2.4cm)Doppler AVA2.09cm2 Pulmonic Valve V21.13m/s Tricuspid Valve TR Velocity2.73m/s [id number] Conclusion lvef 65% normal RV function normal atria no severe valve abnormalities noted
[2025-02-08 11:41] LABS: Hepatitis B Surface Antigen Negative (Negative); Hepatitis C Antibody Negative (Negative)
== END 2025-02-07 13:19 | disposition home or self-care (01) | DRG 720 ==
LOC: ER 21:05 → EAST 02-06 02:25 → OVERFLOW 02-06 02:25 → EAST 02-06 21:31
PROVIDERS: ADMIT Student in an Organized Health Care Education/Training Program; ATTEND Student in an Organized Health Care Education/Training Program
DX: A41.9 Sepsis, unspecified organism (principal); E66.9 Obesity, unspecified; N10 Acute pyelonephritis; E86.0 Dehydration; K52.9 Noninfective gastroenteritis and colitis, unspecified; Z68.41 Body mass index [BMI] 40.0-44.9, adult; N83.202 Unspecified ovarian cyst, left side; E87.6 Hypokalemia
CPT/HCPCS: 36415; 74177; 74181; 76775; 80048; 80053; 80061; 80320; 81001; 81025; 82270; 83036; 83605; 83690; 83735; 84439; 84443; 84481; 84702; 85025; 85048; 86803; 87040; 87045; 87086; 87177; 87340; 87427; 93306; 96361; 96374; 96375; 99291; G0378; J3480; J3490